=== PATIENT | female | born 1980 | race Caucasian/White ===

== ENCOUNTER 2017-06-28 12:27 | Emergency (ER) | payer MEDICAID ==
[~2017-06-28] VITALS: Ht 157.5 cm; Wt 86.4 kg
[2017-06-28 14:00] VITALS: BP 146/92
== END 2017-06-28 14:31 | disposition home or self-care (01) ==
LOC: EMS 12:28
DX: R07.9 Chest pain, unspecified (principal); R11.0 Nausea; R09.1 Pleurisy; E11.9 Type 2 diabetes mellitus without complications
CPT/HCPCS: 85379; 93005; 99285